=== PATIENT | male | born 1970 | race Caucasian/White ===

== ENCOUNTER 2016-11-30 17:10 | Emergency (ER) | payer OTHER ==
[~2016-11-30] VITALS: Ht 180.3 cm; Wt 136.1 kg
[2016-11-30 17:26] VITALS: BP 167/106
[2016-11-30] MEDS ORDERED: HYDR-963 PO (17:55)
--- NOTE | 2016-11-30 17:55 | PHYS DOC ---
Past Medical History Past Medical History: COPD, Hypertension, Other Additional Past Medical Histor: CHRONIC BACK PAIN, BORDERLINE DM, EMPHESEMA Past Surgical History: Other Additional Past Surgical Histo: L THUMB, L FEMUR, TEETH SX, PLASTIC SX ON FIGUEROA Alcohol Use: Occasionally Drug Use: Marijuana Adult General Chief Complaint Chief Complaint: LOWER BACK PAIN HPI HPI Patient is a 45 year old male who presents to the ED with the complaint of low back pain, he has run out of his hydrocodone. Patient states he has had low back pain since 2006. He has seen multiple specialists, no one has been able to do anything. He previously had a doctor who prescribed hydrocodone 10/325 #120 every 30 days. That was working for him but that doctor moved away. He now has Dr. Quinn who cut him to 60 tablets every 30 days and that is not enough. He does have an appointment with Dr. Quinn coming up on 12/03. Also has an appointment coming up on 12/[facility]. Patient states that his family thought that his back looked "bruised". States he also has severe pain in his left hip because he has a "nissa" in it. States if he is not able to get some hydrocodone today "I'll just buy some cocaine, then I will feel nothing". PCP Dr. Quinn Review of Systems Review of Systems Respiratory: States he uses an inhaler for "rocks in his chest" : States he has been peeling blood for [address] Quinn is going to check into that Musculoskeletal: As in history of present illness Allergies Allergies Allergies Coded Allergies Type Severity Reaction Last Updated Verified No Known Drug Allergies 11/30/16 No Physical Exam Physical Exam Constitutional: Obese male who ambulates with a cane with difficulty, alert and mentating normally. HENT: bilateral external ears normal, nose normal. [] Eyes: conjunctiva normal, no discharge. [] Neck: Normal range of motion, no stridor. [] Skin: Warm, dry, no erythema, no rash. [] Back: Back is normal to inspection. There are small collection of varicosities at the base of his spine over paraspinous bilaterally that do not appear acute Extremities: No tenderness, no cyanosis, no clubbing, ROM intact, no edema. [] Neurologic: Alert and oriented X 3, normal motor function, normal sensory function, no focal deficits noted. [] Current Patient Data Vital Signs Vital Signs Date Time Temp Pulse Resp B/P (MAP) Pulse Ox O2 Delivery O2 Flow Rate FiO2 11/30/16 17:26 99.1 96 20 96 Room Air 99.1 EKG EKG [] Radiology/Procedures Radiology/Procedures [] Course & Med Decision Making Course & Med Decision Making Pertinent Labs and Imaging studies reviewed. (See chart for details) 45-year-old male with chronic back pain who has been taking hydrocodone daily for months. Presents because he ran out of hydrocodone before the month was out. I reviewed the patient's [facility] and it does appear that he was routinely getting prescriptions once a month from her previous provider, his last prescription was11/01 for #[address] Quinn. I advised the patient that we will not prescribe any further opiates from the emergency department and advised him he does need to work with his primary care doctor to make a plan for not running out of his opiates. Advised him to discuss also non-opiate pain relief. He does have an appointment coming up with his PCP and also has appointment coming up with the spine center. [] Dragon Disclaimer Dragon Disclaimer This electronic medical record was generated, in whole or in part, using a voice recognition dictation system. Departure Departure Impression: Primary Impression: Chronic back pain greater than 3 months duration Disposition: 01 HOME, SELF-CARE Condition: STABLE Referrals: HENRI QUINN MD (PCP) Patient Instructions: Chronic Back Pain Additional Instructions: As we discussed, it is important to get it controlled substances prescribed by only one doctor. We will not be able to prescribe controlled substances from the emergency department for back pain again. Be sure to discuss with Dr. Quinn that you ran out before the month was over. He sure to keep your appointment coming up with the audit specialist. I recommend also discussing with Dr. Quinn non-medical management of your back pain including possible physical therapy, weight loss, exercises. Scripts Hydrocodone/Apap 10-325 (NORCO 10-325 TABLET) 1 Each Tablet 1-2 TAB PO Q4-6HRS, #10 TAB Prov: CATHI CAMPOS MD 11/30/16 CATHI CAMPOS MD November 30, 2016 17:55
== END 2016-11-30 18:02 | disposition home or self-care (01) ==
LOC: ER 17:10
DX: G89.29 Other chronic pain (principal); M54.5 Low back pain; I10 Essential (primary) hypertension; J43.9 Emphysema, unspecified; F12.10 Cannabis abuse, uncomplicated
CPT/HCPCS: 99283

== ENCOUNTER → 2016-12-09 | Outpatient (CLI) | payer OTHER ==
[2016-11-30 17:26] VITALS: BP 167/106
[~2016-12-09] MED LIST: HYDR-963 PO
--- NOTE | 2016-12-09 16:24 | RAD ---
Indication hematuria. Grayscale imaging was performed targeted to the kidneys. The right kidney measures 13.4 x 5 x 5 cm and appears normal. No hydronephrosis or mass is seen. The left kidney measures 12.4 x 5.8 x 6.7 cm and also appears unremarkable showing no evidence of hydronephrosis or mass. Urinary bladder appeared grossly normal. IMPRESSION: Normal renal ultrasound
== END | disposition home or self-care (01) ==
LOC: US 16:02
PROVIDERS: ATTEND Family Medicine
DX: R31.9 Hematuria, unspecified (principal)
CPT/HCPCS: 76770